=== PATIENT | female | born 1950 | race Caucasian/White ===

== ENCOUNTER 2017-11-12 10:31 | Outpatient (CLI) | payer MEDICARE ==
[~2017-11-12] VITALS: Ht 162.6 cm; Wt 94.5 kg
--- NOTE | ~2017-11-12 | HP ---
PATIENT: JASMIN RUSS MEDICAL RECORD: [id number] ACCOUNT: [id number] LOCATION:[place] : 52 ADMISSION DATE: 11/12/17 PCP: LEO DIALLO MD HISTORY AND PHYSICAL EXAMINATION DIAGNOSES: 1. Unstable angina. 2. Coronary disease. 3. Previous PTCA and stent. 4. Hypertension. 5. Hyperlipidemia. HISTORY: Mrs. Russ presents with unstable anginal symptomatology. She has a past history of cardiac stenting by Dr. Jaimes, last being in 2012. She has been having jaw pain for the past month, which is most likely her anginal equivalent. The pain worsened dramatically today. She presents to the Emergency Room with this. She is currently pain free. Her EKG is with no acute ST-T abnormalities. PHYSICAL EXAMINATION: GENERAL APPEARANCE: Well-nourished, well-developed, appears stated age. Level of distress, comfortable. PSYCHIATRIC: Mental status, alert, normal affect. Orientation, oriented to time, place and person. EYES: Lids and conjunctiva, noninjected. No discharge, no pallor. ENT: Lips, teeth, gums, normal dentition. Oropharynx, no cyanosis, no pallor. NECK: Carotid arteries, bilateral normal upstroke, no bruits, no thrills. JUGULAR VEINS: No jugular venous pressure or distention. CERVICAL LYMPH NODES: Nontender, nonenlarged. THYROID: Not enlarged. Nontender. No nodules. LUNGS: Respiratory effort, unlabored. CHEST: Normal curvature. No thoracic deformity. No chest wall tenderness. Percussion, resonant. Auscultation, clear. No wheezes, no rales, no rhonchi. CARDIOVASCULAR: Precordial exam, nondisplaced. No heaves or pericardial thrills. Rate and rhythm, regular. Heart sounds, normal S1, normal S2. No S3, no gallop, no rub. Systolic murmur, not heard. Diastolic murmur, not heard. EXTREMITIES: No cyanosis, no edema. Peripheral pulses, full and equal in all extremities, except as noted. No bruits appreciated. ABDOMEN: Soft, nondistended. Normal aorta. No bruit. Nontender. No masses. Liver, nontender, no hepatomegaly. Spleen, nontender, no splenomegaly. MUSCULOSKELETAL: No joint tenderness. No joint swelling. No erythema. NEUROLOGICAL: Normal gait, normal strength, normal tone. SKIN: Warm and dry. OVERALL IMPRESSION: Angina, unstable fashion. Most likely, she has recurrent hemodynamically significant coronary disease. We will proceed with coronary angiography. Further care depends upon findings of the angiography. TRANSINT:[id number] Voice Confirmation ID: [id number] DOCUMENT ID: [id number] HISTORY AND PHYSICAL [id number] JASMIN RUSS JEFFREY MD at 1949 CC: [id number] DICTATION DATE: 11/12/17 1234 MANAGER BEVERAGE: 11/12/17 1339 DEP CLI 11/12/17 [facility] [address] [place] [address]
[2017-11-12 10:49] VITALS: Ht 162.6 cm; Wt 94.5 kg
[2017-11-12] MEDS ORDERED: METOPROLOL TART25 MG (10:51)
[2017-11-12] MEDS ORDERED: PRINIVIL20 MG PO (10:52)
[2017-11-12] MEDS ORDERED: LEXAPRO20 MG PO (10:52)
[2017-11-12] MEDS ORDERED: LIPITOR20 MG PO (10:52)
[2017-11-12] MEDS ORDERED: ASPIRIN EC81 M1 PO (10:53)
[2017-11-12] MEDS ORDERED: PROTONIX20 MG PO (10:53)
[2017-11-12] MEDS ORDERED: LINZESS145 MCG PO (10:55)
[2017-11-12 11:37] LABS: BASOPHILS 0.5 % (0-2); HEMATOCRIT 41.2 % (36.0-48.0); HEMOGLOBIN 13.8 g/dL (12-16); IMMATURE GRANULOCYTES 0.3 % (0-5); LYMPHOCYTES 27.2 % (15-50); MCH 32.2 pg (26.0-34.0); MCHC 33.5 g/dL (31.0-37.0); MCV 96.3 fL (80.0-100.0); MEAN PLATELET VOLUME 9.9 fL (7.4-10.4); MONOCYTES 9.1 % (2-11); NEUTROPHILS 57.9 % (40-80); PLATELET COUNT 174 10x3/uL (130-400); RBC 4.28 10x6/uL (4.00-5.40); RDW 12.8 % (11.5-14.5)
[2017-11-12 11:42] LABS: APPEARANCE CLEAR (CLEAR); BILIRUBIN NEGATIVE (NEGATIVE); COLOR STRAW (YELLOW); GLUCOSE NEGATIVE (NEGATIVE); KETONE NEGATIVE (NEGATIVE); NITRITE NEGATIVE (NEGATIVE); PROTEIN NEGATIVE (NEGATIVE); SPECIFIC GRAVITY 1.005 (1.005-1.020); UROBILINOGEN NORMAL (NORMAL)
[2017-11-12 11:44] LABS: AMORPHOUS SEDIMENT <1+ /lpf (NONE SEEN); BACTERIA FEW /hpf (NONE SEEN); EPITHELIAL CELLS OCC /hpf (0-5); MUCUS <1+ /lpf (NONE SEEN); RED CELLS - URINE 0-5 /hpf (0-5); WHITE CELLS - URINE OCC /hpf (0-5)
[2017-11-12 11:47] LABS: APTT 24.6 SECONDS (22.8-39.4); INR 0.97 (0.85-1.17); PROTIME 12.5 SECONDS (11.6-15.0)
[2017-11-12 11:48] LABS: D-DIMER-QUANTITATIVE 0.49 ug/mLFEU (0.20-0.54)
[2017-11-12 11:51] LABS: ALBUMIN 3.7 g/dL (3.4-5.0); ALKALINE PHOSPHATASE 76 U/L (46-116); ALT (SGPT) 27 U/L (10-68); CALC OSMOLALITY 284 mosm/kg (275-300); CALCIUM 8.6 mg/dL (8.5-10.1); CARBON DIOXIDE 31.1 mmol/L (21.0-32.0); CHLORIDE - SERUM 106 mmol/L (98-107); GLUCOSE 106 mg/dL (74-106); POTASSIUM - SERUM 3.7 mmol/L (3.5-5.1); SODIUM 142 mmol/L (136-145); UREA NITROGEN 18 mg/dL (7-18); eGFR NON AFRICAN AMERICAN 59 mL/min (90-120)
[2017-11-12 12:02] LABS: CKMB 1.7 U/L (0.0-3.6); CREATINE KINASE 133 UL (21-215)
[2017-11-12 12:04] LABS: TROPONIN-I < 0.017 ng/mL (0.000-0.060)
[2017-11-12 18:30] LABS: CKMB 1.4 U/L (0.0-3.6); CREATINE KINASE 132 UL (21-215)
[2017-11-12 18:32] LABS: TROPONIN-I < 0.017 ng/mL (0.000-0.060)
[2017-11-12 20:28] VITALS: BP 143/81
== END 2017-11-12 20:28 | disposition home or self-care (01) ==
LOC: D.ER 10:31 → D.M2 10:31 → D.CATH 10:31 → D.CLR 10:31 → EDSTATUS 12:45 → D.CLR 12:50 → D.M2 17:21 → D.CLR 17:22 → D.M2 17:39 → D.CATH 20:28
PROVIDERS: Emergency Medicine
DX: R07.9 Chest pain, unspecified (principal); I25.110 Atherosclerotic heart disease of native coronary artery with unstable angina pectoris